=== PATIENT | male | born 1965 | race Caucasian/White ===

== ENCOUNTER 2023-11-18 09:44 | Emergency (ER) | payer OTHER, SELFPAY ==
[2023-11-18] VITALS (9 sets, daily range): BP systolic 134–141; BP diastolic 77–84; PULSE 55–69; RESP 14–35; TEMP 36.8; O2SAT 99–100; BMI 24.4
--- NOTE | 2023-11-18 10:04 | DI.CT.S_ITS ---
PROCEDURE: CT HEAD/BRAIN WO CON INDICATIONS: Head injury, loss of consciousness, confusion TECHNIQUE: Noncontrast 4.5 mm thick angled axial sections acquired from the foramen magnum to the vertex, with coronal and sagittal reformats. For radiation dose reduction, the following was used: automated exposure control, adjustment of mA and/or kV according to patient size. COMPARISON: None. FINDINGS: Image quality: Diagnostic. CSF spaces: Basal cisterns are patent. No extra-axial fluid collections. Ventricles are normal in size and shape. Brain: No midline shift. No intracranial masses or hemorrhage. Hernandez-white matter interface is normal. Skull and face: Minimal scalp hematoma can be seen anteriorly to the Dolly the midline, with mild laceration with soft tissue gas. No associated calvarial fracture can be seen. Calvarium and visualized facial bones are intact, without suspicious lesions. Sinuses: Visualized sinuses and mastoids are clear. IMPRESSION: Minimal scalp hematoma with laceration can be seen on the right anteriorly. No acute intracranial hemorrhage is seen. No acute intracranial pathology. Dictated by: Justin Metcalf M.D. on 11/18/2023 at 9:40 Approved by: Justin Metcalf M.D. on 11/18/2023 at 9:41
--- NOTE | 2023-11-18 10:11 | ED.GENADULT ---
HPI - General Adult General Chief complaint: Trauma Stated complaint: head injury, laceration on head/alucination Time Seen by Provider: 11/18/23 09:58 Source: patient and family Mode of arrival: Wheelchair History of Present Illness HPI narrative: Patient is a 58-year-old male. Has a history of MS. Also has a history of a seizure disorder but has not had seizures for many years and takes no medications. He was at his normal state of health. He was working on a fence when a heavy board came down and hit him on his head. It was not specifically witnessed by his but his was next to him when it happened. The patient initially screamed out and then fell to the ground. He did have a period of time of a loss of consciousness. No seizure activity. She states that he is lost consciousness 2 more times since the event an in between these times came back to normal. Here in the ER patient states he has a significant headache. No vision changes. He thinks maybe he twisted his knee when he fell but otherwise no other injuries. He does have a laceration to his forehead. He has not on blood thinners. Related Data Home Medications Medication Instructions Recorded Confirmed No Known Home Medications 11/18/23 11/18/23 Allergies Allergy/AdvReac Type Severity Reaction Status Date / Time No Known Drug Allergies Allergy Verified 11/18/23 09:56 Review of Systems Review of Systems ROS Unobtainable: All systems reviewed & are unremarkable except as noted in HPI and below Patient History Medical History Seizure disorder Multiple sclerosis Social History Smoking Status: Former smoker Smoking Status: Former smoker alcohol intake frequency: 0-2 drinks per day Substance Use Type: does not use Exam Initial Vital Signs Initial Vital Signs: Vital Signs Temperature 98.2 F 11/18/23 09:45 Pulse Rate 66 11/18/23 09:45 Respiratory Rate 14 11/18/23 09:45 Blood Pressure 134/84 11/18/23 09:45 Pulse Oximetry 99 11/18/23 09:45 Oxygen Delivery Method Room Air 11/18/23 09:45 Const General: cooperative and No ill appearing HENMT Head: laceration (Two frontal scalp) Eyes Pupils: PERRL EOM: EOM intact bilaterally Resp Effort & Inspection: normal respiratory effort Auscultation: clear to auscultation bilaterally Cardio Rate: regular rate Rhythm: regular rhythm GI Inspection: normal to inspection and non-distended Back/Spine/Pelvis Cervical Spine: No cervical spinal tenderness Skin Other: 3 cm linear laceration to the frontal scalp Neuro General: patient alert, patient awake, patient oriented x3 and moves all extremities Extrem General: normal to inspection and capillary refill normal Procedures Laceration Repair Laceration 1: Site: scalp Size (cm): 4 Description: linear Depth: simple, single layer Local Anesthetic: lidocaine 1% and with epi Amount of anesthesia used (mL): 5 Pre-repair: wound explored and deep structures intact Skin layer closed with: kendrick Scores Evans CT Head Rule Age <16 years old: No Patient on blood thinners: No Seizure after injury: No Exclusion: Patient NOT Excluded, Proceed to next steps GCS < 15 at 2 hr post trauma: No Suspected open or depressed skull fracture: No Any sign of basilar skull fracture (hemotympanum, raccoon eyes, Black's sign, CSF lisa-/rhinorrhea): No Two or more episodes of vomiting: No Age greater or equal to 65 years: No Retrograde amnesia to the event greater or equal to 30 min: No Dangerous Mechanism (pedestrian vs. mv, occupant ejected from mv, fall from >3 ft or > 5 stairs): No Recommendation: CT unnecessary GCS Agatha coma scale eye opening: Spontaneous [place] coma scale verbal response: Orientated [place] coma scale motor response: Obey commands Agatha coma scale total score: 15 Course Orders Ordered: ED Orders 11/18/23 10:04 CT head/brain wo con Stat Discontinued Medications Acetaminophen (Acetaminophen 325 Mg Tablet) 650 mg PO NOW ONE Stop: 11/18/23 11:16 Bacitracin (Bacitracin Oint 0.9 Gm Pckt) 1 applic TOP NOW ONE Stop: 11/18/23 11:16 Diphtheria/Tetanus/Acell Pertussis (Tet,Diph,Pertuss(Acell),Vac/Pf 0.5 Ml Syringe) 0.5 ml IM .ONCE ONE Stop: 11/18/23 09:58 Last Admin: 11/18/23 10:14 Dose: 0.5 ml Documented By: CTS Vital Signs Vital signs: Vital Signs - 8 hr 11/18/23 09:45 11/18/23 09:50 11/18/23 09:51 Temperature 98.2 F Pulse Rate 66 69 Respiratory Rate 14 Blood Pressure 134/84 134/84 Pulse Oximetry 99 100 Oxygen Delivery Method Room Air 11/18/23 10:00 11/18/23 10:00 Temperature Pulse Rate 68 Respiratory Rate 22 Blood Pressure 141/77 H Pulse Oximetry 100 Oxygen Delivery Method Room Air Medical Decision Making Imaging Data CT scan - head: Radiologist's Impression: ROCEDURE: CT HEAD/BRAIN WO CON INDICATIONS: Head injury, loss of consciousness, confusion TECHNIQUE: Noncontrast 4.5 mm thick angled axial sections acquired from the foramen magnum to the vertex, with coronal and sagittal reformats. For radiation dose reduction, the following was used: automated exposure control, adjustment of mA and/or kV according to patient size. COMPARISON: None. FINDINGS: Image quality: Diagnostic. CSF spaces: Basal cisterns are patent. No extra-axial fluid collections. Ventricles are normal in size and shape. Brain: No midline shift. No intracranial masses or hemorrhage. Hernandez-white matter interface is normal. Skull and face: Minimal scalp hematoma can be seen anteriorly to the Dolly the midline, with mild laceration with soft tissue gas. No associated calvarial fracture can be seen. Calvarium and visualized facial bones are intact, without suspicious lesions. Sinuses: Visualized sinuses and mastoids are clear. IMPRESSION: Minimal scalp hematoma with laceration can be seen on the right anteriorly. No acute intracranial hemorrhage is seen. No acute intracranial pathology. MDM Narrative Medical decision making narrative: Patient is not on blood thinners however has had 3 separate distinct episodes of loss of consciousness since the event. Also has a history of seizures however did not appear to have any seizure-like activity. He was alert oriented x3 but certainly does not remember the event but does not have greater than 30 minutes of amnesia from the event. Head CT shows no acute pathology. His scalp laceration was closed as described above. We did discuss concussions. We discussed return precautions and what to expect over the next several days. Will discharge patient home with return precautions. Both the patient and expressed understanding and agreement with plan. Discharge Plan Departure Patient Disposition: Home Clinical Impression: Concussion, Laceration Instructions: Concussion, DI for Laceration Repair -- [place] Activity Restrictions/Additional Instructions: The kendrick do need to be removed in 7-10 days. You can go to the walk-in clinic or your primary doctor for this. You can continue to use topical antibiotic ointment such as Neosporin or bacitracin. You can eat like normal and sleep like normal. He can take Tylenol for any headaches. Avoid activities that make any of your symptoms worse. Return to the emergency department for new symptoms. Prescriptions: No Action No Known Home Medications Stand Alone Forms: Patient Portal/API, Work Release Note
[2023-11-18] MEDS: TET,DIPH,PERTUSS(ACELL),VAC/PF 0.5 ML SYRINGE IM (10:14)
[2023-11-18] MEDS: ACETAMINOPHEN 325 MG TABLET 650 MG PO (11:21)
[2023-11-18] MEDS: BACITRACIN OINT 0.9 GM PCKT 1 APPLIC TOP (11:21)
== END 2023-11-18 11:29 | disposition home or self-care (01) ==
PROVIDERS: Emergency Provider Emergency Medicine
DX: S06.0X1A Concussion with loss of consciousness of 30 minutes or less, initial encounter (principal); S01.01XA Laceration without foreign body of scalp, initial encounter; W18.09XA Striking against other object with subsequent fall, initial encounter; Z23 Encounter for immunization
CPT/HCPCS: 12002; 70450; 90471; 99284; 90715

== ENCOUNTER 2024-02-29 12:15 | Emergency (ER) | payer OTHER, SELFPAY ==
[2024-02-29 12:24] VITALS: BP 130/83; PULSE 55; RESP 16; TEMP 35.9; O2SAT 100; BMI 24.3
--- NOTE | 2024-02-29 12:59 | ED_ITS ---
HPI - Wound/Laceration General Chief Complaint: Wound/Laceration Stated Complaint: fall, lacerations on left arm Time Seen by Provider: 02/29/24 12:29 Source: patient Mode of arrival: Ambulatory History of Present Illness HPI narrative: Patient is a 58-year-old male right hand dominant presenting today with left hand and forearm laceration. 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 It cut his forearm and his left hand. No numbness or tingling no other injuries. Did not hit head not on any anticoagulation. Tetanus is up-to-date he recently had kendrick Related Data Home Medications Medication Instructions Recorded Confirmed No Known Home Medications 11/18/23 11/18/23 Allergies Allergy/AdvReac Type Severity Reaction Status Date / Time No Known Drug Allergies Allergy Verified 02/29/24 12:26 Patient History Medical History Seizure disorder Multiple sclerosis Social History Smoking Status: Former smoker Smoking Status: Former smoker alcohol intake frequency: 0-2 drinks per day Substance Use Type: does not use Exam Initial Vital Signs Initial Vital Signs: Vital Signs Temperature 96.7 F L 02/29/24 12:24 Pulse Rate 55 L 02/29/24 12:24 Respiratory Rate 16 02/29/24 12:24 Blood Pressure 130/83 02/29/24 12:24 Pulse Oximetry 100 02/29/24 12:24 Oxygen Delivery Method Room Air 02/29/24 12:24 GENERAL: Well-appearing, well-nourished and in no acute distress. CARDIOVASCULAR: peripheral pulses in tact, cap refill <2 sec RESPIRATORY: No respiratory distress, speaks in full sentences without difficulty EXTREMITIES: Normal range of motion, no clubbing or edema. Neurovascularly intact Left hand full flexion extension of all fingers good ab and adduction of fingers and wrist NEUROLOGICAL: Cranial nerves II through XII grossly intact. Normal gait and speech. SKIN: Left hand, palm side on little finger side 6 cm laceration across Left forearm 3 cm laceration Procedures Laceration Repair Laceration 1: Site: hand Side (If applicable): left Size (cm): 6 Description: linear Depth: simple, single layer Local Anesthetic: lidocaine 2% and with epi Amount of anesthesia used (mL): 6 Pre-repair: wound explored, irrigated extensively and deep structures intact Skin layer closed with: nylon Skin layer suture size: 4-0 Number of sutures: 6 Technique: simple, interrupted Laceration 2: Site: upper extremity (Forearm) Side (If applicable): left Size (cm): 3 Description: linear Depth: simple, single layer Local Anesthetic: lidocaine 2% and with epi Amount of anesthesia used (mL): 3 Pre-repair: wound explored, irrigated extensively and deep structures intact Skin layer closed with: nylon Skin layer suture size: 4-0 Number of sutures: 3 Technique: simple, interrupted Course Vital Signs Vital signs: Vital Signs - 8 hr /08/14 12:24 Temperature 96.7 F L Pulse Rate 55 L Respiratory Rate 16 Blood Pressure 130/83 Pulse Oximetry 100 Oxygen Delivery Method Room Air MDM - Wound/Laceration MDM Narrative Medical decision making narrative: Patient healthy 58-year-old male who presents with left hand and left forearm laceration after mechanical fall. Tetanus is up to date not on antiplatelet anticoagulation medication. No other injuries. Each site is easily sutured. No neurovascular compromise Discharge Plan Departure Patient Disposition: Home Clinical Impression: Laceration Instructions: DI for Minor Laceration Activity Restrictions/Additional Instructions: 1. Have your suture removed in 7-10 days, you may go to walk-in clinic, return to the ER or call your primary care physician. 2. No soaking in water including dishes, bathtubs, Lakes, swimming pools etc 3. A recommend antibiotic ointment 1 to 2 times a day. Please keep hand and arm covered while out in about throughout the day but I do recommend taking off bandage at nighttime. Clean and dry with soap and water only no need for hy drogen peroxide 4. Signs of infection include, but not limited to, increased redness, increased swelling, increased pain, fever and purulent drainage, if the symptoms should arise, you may need an antibiotic and you should have a reevaluation either by your primary care provider or by the emergency department. Prescriptions: No Action No Known Home Medications Referrals: Miscellaneous,Doctor[facility] [Primary Care Provider] - Stand Alone Forms: Patient Portal/API
--- NOTE | 2024-02-29 12:59 | PC.NURSE ---
wound seen, assessed and sutured by provider before this RN able to assess.
== END 2024-02-29 13:13 | disposition home or self-care (01) ==
PROVIDERS: Emergency Provider Emergency Medicine
DX: S61.412A Laceration without foreign body of left hand, initial encounter (principal); S51.812A Laceration without foreign body of left forearm, initial encounter; W01.0XXA Fall on same level from slipping, tripping and stumbling without subsequent striking against object, initial encounter
CPT/HCPCS: 12004; 99281; 99283

== ENCOUNTER 2025-07-10 09:59 | Emergency (ER) | payer OTHER, SELFPAY ==
[2025-07-10] VITALS (12 sets, daily range): BP systolic 116–154; BP diastolic 68–81; PULSE 53–94; RESP 14–20; TEMP 37; O2SAT 98–100; BMI 24.0
--- NOTE | 2025-07-10 10:08 | EKG_ITS ---
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
--- NOTE | 2025-07-10 10:10 | DI.RAD.S_ITS ---
PROCEDURE: XR CHEST 1V INDICATIONS: Chest Pain TECHNIQUE: One view of the chest was acquired. COMPARISON: None. FINDINGS: Surgical changes and devices: None. Lungs and pleura: Lungs are clear. No pleural effusions or pneumothorax. Mediastinum: Mediastinal contours appear normal. Heart size is normal. Bones and chest wall: No suspicious bony lesions. Overlying soft tissues appear unremarkable. IMPRESSION: No acute cardiopulmonary abnormality is seen. Dictated by: Kash Sanchez M.D. on 07/10/2025 at 11:00 Approved by: Kash Sanchez M.D. on 07/10/2025 at 11:00
[2025-07-10 10:33] LABS: INR 0.9 (0.9-1.3); Prothrombin Time 10.6 SECONDS (9.4-12.5)
[2025-07-10 10:36] LABS: Add Manual Diff / Slide Review NO; Hematocrit 43.0 % (41-53); Hemoglobin 15.1 g/dL (13.5-17.5); Lymphocytes Absolute Auto 1500 /uL (1100-4500); Mean Corpuscular HGB Conc 35.1 % (30-36); Mean Corpuscular Hemoglobin 31.6 PG (26-34); Mean Corpuscular Volume 90.1 fL (80-100); Platelet Count 148 X10^3/uL (150-400)
[2025-07-10 10:37] LABS: PTT Partial Thromboplastin Tim 28 SECONDS (25.1-36.5)
[2025-07-10 10:42] LABS: Alanine Aminotransferase 24 IU/L (<50); Albumin 4.8 g/dL (3.5-5.0); Albumin Globulin Ratio 1.8 (1.0-2.8); Alkaline Phosphatase 69 U/L (38-126); Blood Urea Nitrogen 21 mg/dL (9-20); Calcium 9.3 mg/dL (8.4-10.2); Carbon Dioxide 23 mmol/L (22-32); Chloride 103 mmol/L (98-107); Creatine Kinase 83 U/L (55-170); Estimated Glomerular Filt Rate > 60 mL/min (>60); Globulin 2.7 g/dL (1.7-4.1); Glucose 103 mg/dL (70-99); HEMOLYSIS < 15 (0-50); Lipase 100 U/L (23-300); Magnesium 2.0 mg/dL (1.6-2.3); Potassium 4.3 mmol/L (3.4-5.1); Sodium 135 mmol/L (137-145); Total Protein 7.5 g/dL (6.3-8.2)
[2025-07-10 10:52] LABS: NT-proBNP (BNP-Adult 18+) 60 pg/mL (<125); Troponin I < 0.012 ng/mL (0.01-0.034)
[2025-07-10] MEDS: ASPIRIN 81 MG CHEW TAB 324 MG PO (12:05)
--- NOTE | 2025-07-10 12:22 | EKG_ITS ---
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
[2025-07-10 13:19] LABS: Troponin I < 0.012 ng/mL (0.01-0.034)
--- NOTE | 2025-07-10 13:21 | ED.CHESTPAIN ---
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 He reports he had some chest discomfort while sitting in the truck 5 days ago. He has sometimes felt a in his jaw but felt like his jaw was clenching. He has noticed increasing shortness of breath while walking up the driveway. reports that it has gotten worse. He reports he does not have to stop reports otherwise. He also has this on going left arm pain. He points to the back of his left shoulder and neck. Says that his left arm pain gets better when he raises his left arm above his head. He does not go to the doctor he sometimes takes ibuprofen he is not a smoker Related Data Home Medications ?Medication ?Instructions ?Recorded ?Confirmed No Known Home Medications 11/18/23 11/18/23 Allergies Allergy/AdvReac Type Severity Reaction Status Date / Time No Known Drug Allergies Allergy Verified 07/10/25 10:04 Patient History Medical History Seizure disorder Multiple sclerosis Social History Smoking Status: Never smoker Smoking Status: Never smoker alcohol intake frequency: 0-2 drinks per day Alcohol type: beer Exam Initial Vital Signs Initial Vital Signs: Vital Signs Temperature 98.6 F 07/10/25 10:04 Pulse Rate 94 H 07/10/25 10:04 Respiratory Rate 20 07/10/25 10:04 Blood Pressure 154/81 H 07/10/25 10:04 Pulse Oximetry 100 07/10/25 10:04 Oxygen Delivery Method Room Air 07/10/25 10:04 GENERAL: Alert pleasant well-appearing 60-year-old and in no acute distress. HEENT: Head atraumatic,EOMI, pupils reactive, face symmetric, moist mucous membranes CARDIOVASCULAR: Regular rate and rhythm without murmurs, rubs or gallops. Pain in left arm is definitely reproducible over the the scapula. He has significant muscle spasms and winces. RESPIRATORY: Breath sounds equal bilaterally, no wheezes rales or rhonchi. ABDOMEN: Soft, nontender. Normoactive bowel sounds all 4 quadrants. No guarding or rebound. EXTREMITIES: Normal range of motion, no clubbing or edema. Neurovascularly intact NEUROLOGICAL: Alert and oriented x4.Normal gait and speech. Cranial nerves II through XII grossly intact. [place]eller Hand strength is equal bilaterally SKIN: Warm, dry, no laceration, no petechiae, no rashes or lesions. Scores HEART Score Heart Score history: Moderately Suspicious Heart Score EKG: Normal Heart Score Age: 45-64 years old Heart Score risk factors: No known risk factors Heart Score troponin: < or = to normal limit Heart Score Total: 2 Course Orders Ordered: ED Orders 07/10/25 10:10 XR chest 1V Stat EKG-12 Lead Stat 07/10/25 10:17 Complete Blood Count AUTO DIFF Stat Comprehensive Metabolic Panel Stat Lipase Stat Magnesium Stat NT-proBNP (BNP-Adult 18+) Stat PTT Partial Thromboplastin Rene Stat Prothrombin Time INR Stat Troponin & CK Cardiac Panel Stat 07/10/25 12:20 EKG-12 Lead Stat 07/10/25 12:38 Trop I [Troponin I] Stat 07/10/25 13:56 Consult to HISTORICAL RECORDS ADMINISTRATOR - Superintendent Tests Stat Discontinued Medications Aspirin (Aspirin 81 Mg Chew Tab) 324 mg PO NOW ONE Stop: 07/10/25 10:11 Last Admin: 07/10/25 12:05 Dose: 324 mg Documented By: DICKSON Vital Signs Vital signs: Vital Signs - 8 hr 07/10/25 10:04 07/10/25 11:16 07/10/25 11:17 Temperature 98.6 F Pulse Rate 94 H 62 Respiratory Rate 20 Blood Pressure 154/81 H 119/68 Pulse Oximetry 100 98 Oxygen Delivery Method Room Air 07/10/25 11:17 07/10/25 11:30 07/10/25 11:30 Temperature Pulse Rate 63 60 Respiratory Rate 14 14 Blood Pressure 120/70 Pulse Oximetry 98 98 Oxygen Delivery Method 07/10/25 12:00 07/10/25 12:00 07/10/25 12:30 Temperature Pulse Rate 60 62 Respiratory Rate 14 14 Blood Pressure 116/70 Pulse Oximetry 100 99 Oxygen Delivery Method 07/10/25 13:00 07/10/25 13:30 07/10/25 14:00 Temperature Pulse Rate 53 L 60 Respiratory Rate 17 Blood Pressure Pulse Oximetry 99 99 99 Oxygen Delivery Method 07/10/25 14:14 07/10/25 14:30 07/10/25 14:59 Temperature Pulse Rate 63 Respiratory Rate 16 17 Blood Pressure 118/72 Pulse Oximetry 99 Oxygen Delivery Method MDM - Chest Pain Lab Data 07/10/25 10:17 07/10/25 10:17 Labs: Lab Results 07/10/25 07/10/25 Range/Units 10:17 12:38 WBC 4.8 (4.5-11.0) X10^3/uL RBC 4.77 (4.5-5.9) X10^6/uL Hgb 15.1 (13.5-17.5) g/dL Hct 43.0 (41-53) % MCV 90.1 (80-100) fL MCH 31.6 (26-34) PG MCHC 35.1 (30-36) % RDW 12.6 (11.6-14.8) % Plt Count 148 L (150-400) X10^3/uL Neut % (Auto) 55.4 (50-75) % Lymph % (Auto) 31.7 (25-40) % [place] % (Auto) 9.9 (3-14) % Eos % (Auto) 1.8 L (2-4) % Baso % (Auto) 1.2 (0-2) % Neut # (Auto) 2600 (4151-9100) /uL Lymph # (Auto) 1500 (7412-7212) /uL [place] # (Auto) 500 (0-900) /uL Eos # (Auto) 100 (0-450) /uL Baso # (Auto) 100 (0-100) /uL PT 10.6 (9.4-12.5) SECONDS INR 0.9 (0.9-1.3) APTT 28 (25.1-36.5) SECONDS Sodium 135 L (137-145) mmol/L Potassium 4.3 (3.4-5.1) mmol/L Chloride 103 (98-107) mmol/L Carbon Dioxide 23 (22-32) mmol/L BUN 21 H (9-20) mg/dL Creatinine 1.07 (0.66-1.25) mg/dL Estimated GFR > 60 (>60) mL/min BUN/Creatinine Ratio 19.6 (6-22) Glucose 103 H (70-99) mg/dL Calcium 9.3 (8.4-10.2) mg/dL Magnesium 2.0 (1.6-2.3) mg/dL Total Bilirubin 1.8 H (0.2-1.3) mg/dL AST 36 (17-59) IU/L ALT 24 (<50) IU/L Alkaline Phosphatase 69 (38-126) U/L Total Creatine Kinase 83 (55-170) U/L Troponin I < 0.012 < 0.012 (0.01-0.034) ng/mL NT-Pro-B Natriuret Pep 60 (<125) pg/mL Total Protein 7.5 (6.3-8.2) g/dL Albumin 4.8 (3.5-5.0) g/dL Globulin 2.7 (1.7-4.1) g/dL Albumin/Globulin Ratio 1.8 (1.0-2.8) Lipase 100 (23-300) U/L Imaging Data Chest x-ray: Radiologist's Impression: PROCEDURE: XR CHEST 1V INDICATIONS: Chest Pain TECHNIQUE: One view of the chest was acquired. COMPARISON: None. FINDINGS: Surgical changes and devices: None. Lungs and pleura: Lungs are clear. No pleural effusions or pneumothorax. Mediastinum: Mediastinal contours appear normal. Heart size is normal. Bones and chest wall: No suspicious bony lesions. Overlying soft tissues appear unremarkable. IMPRESSION: No acute cardiopulmonary abnormality is seen. Dictated by: Kash Sanchez M.D. on 07/10/2025 at 11:00 ECG Data Attestation: I personally reviewed and interpreted this ECG as follows: Prior ECG tracings: not available for review Interpretation: EKGs 1. Sinus rhythm rate 82 DE interval 134 QRS 86 QTC 404 no priors to compare has mild artifact possible mild ST depression in lead 3 but no elevation no Q-waves EKGs 2. Sinus rhythm no artifact no ST depression no abnormality no AV elizabeth block MDM Narrative Medical decision making narrative: Patient is a 60-year-old male presenting to day with chest pain and left arm pain. He has been ongoing for the last 5 days. Left arm pain really seems to be reproducible from the left scapula. He definitely has some muscle spasms definitely reproducible. I think this is not related to cardiac disease Patient has a heart score of 2 Blood work has been reviewed No leukocytosis no anemia no electrolyte abnormality Chest x-ray no acute cardio pulmonary process 2 EKGs reviewed-sinus rhythm no ischemia He has 2- troponins normal EKGs, normal chest x-ray low heart score. Only concern is that he is mildly short of breath with exertion. 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 Social work trying to get a PCP follow-up appointment. At this time patient and feel comfortable going home recommended strongly to return to the ED if symptoms worsened or to call 911. They are actually [facility] Discharge Plan Departure Patient Disposition: Home Clinical Impression: Atypical chest pain Instructions: DI for Atypical Chest Pain Activity Restrictions/Additional Instructions: *You have been diagnosed with atypical chest *What to do: At this time I do recommend they follow up with primary care provider may need further testing such as echo or stress *Continue to take medications as directed *Follow up with your primary care provider in 2-3 days or call [phone] *Return to ER if you should have increasing chest pain shortness of breath weakness [or] any new, worsening or concerning symptoms Prescriptions: No Action No Known Home Medications Stand Alone Forms: Patient Portal/API
--- NOTE | 2025-07-10 16:37 | CM.SWNOTE ---
ED VEGETABLE CUTTER Note Patient is 60 y/o male who presents to ED due to concern for chest pain. Patient has [facility] [employer] [facility] and no current PCP. VEGETABLE CUTTER receives consult to assist patient in establishing care with PCP. VEGETABLE CUTTER calls primary care clinics, it is reported that patient needs a referral from the [facility] in order to be seen by community PCP. VEGETABLE CUTTER calls [facility], it is reported that patient needs to provided his updated local address to [facility] with [facility]. VEGETABLE CUTTER attempts to hand patient the phone to update the [facility] but the [facility] disconnected the call. VEGETABLE CUTTER provides patient with contact information for the [facility] and encourages patient to contact them to establish PCP. Plan: patient to d/c to home upon medical clearance, patient to f/u with [facility] to establish PCP. BRAYAN Solano
== END 2025-07-10 15:29 | disposition home or self-care (01) ==
PROVIDERS: Emergency Provider Emergency Medicine
DX: R07.89 Other chest pain (principal); M79.602 Pain in left arm
CPT/HCPCS: 71045; 80053; 82550; 83690; 83735; 83880; 84484; 85025; 85610; 85730; 93005; 99283; 99284